=== PATIENT | female | born 1990 | race Caucasian/White ===

== ENCOUNTER 2017-04-17 16:02 | Emergency (ER) | payer OTHER ==
[~2017-04-17] VITALS: Ht 142.2 cm; Wt 95.5 kg
[2017-04-17 16:03] VITALS: BP 132/75; PULSE 73; RESP 16; TEMP 98.5; O2SAT 99
[2017-04-17 17:10] LABS: AUTOMATED NEUTROPHIL # 9.2 TH/MM3 (1.8-7.7); BASOPHIL % 0.1 % (0.0-2.0); BILIRUBIN, URINE NEG (NEG); BLOOD, URINE MOD (NEG); EOSINOPHIL % 0.3 % (0.0-4.0); GLUCOSE,URINE NEG (NEG); HEMATOCRIT 38.6 % (35.0-46.0); HEMOGLOBIN 13.7 GM/DL (11.6-15.3); KETONE, URINE 150 mg/dL (NEG); LYMPH % 12.3 % (9.0-44.0); LYMPHOCYTE # 1.4 TH/MM3 (1.0-4.8); MEAN CELL VOLUME 94.8 FL (80.0-100.0); MEAN CORPUSCULAR HEMOGLOBIN 33.7 PG (27.0-34.0); MEAN CORPUSCULAR HGB CONC 35.5 % (32.0-36.0); MEAN PLATELET VOLUME 7.1 FL (7.0-11.0); MONO % 3.6 % (0.0-8.0); MONOCYTE # 0.4 TH/MM3 (0-0.9); MUCUS URINE FEW /lpf (OCC); NEUT % 83.7 % (16.0-70.0); NITRITE,URINE NEG (NEG); PLATELET COUNT 317 TH/MM3 (150-450); RED BLOOD COUNT 4.07 MIL/MM3 (4.00-5.30); RED CELL DISTRIBUTION WIDTH 12.7 % (11.6-17.2); SQUAMOUS EPITHELIAL CELL URINE 19 /hpf (0-5); URINE COLOR YELLOW (YELLW/STRAW); URINE LEUKOCYTE ESTERASE MOD (NEG)
[2017-04-17 17:23] LABS: ALBUMIN 3.6 GM/DL (3.4-5.0); AST (GOT) 6 U/L (15-37); BICARBONATE 24.1 MEQ/L (21.0-32.0); BLOOD UREA NITROGEN 9 MG/DL (7-18); CALCIUM 8.7 MG/DL (8.5-10.1); CHLORIDE 102 MEQ/L (98-107); CREATININE 0.61 MG/DL (0.50-1.00); GLOMERULAR FILTRATION RATE 120 ML/MIN (>89); GLUCOSE,RANDOM 107 MG/DL (74-106); SODIUM (NA) 136 MEQ/L (136-145)
[2017-04-17 17:26] LABS: ALKALINE PHOSPHATASE 95 U/L (45-117); ALT (GPT) 14 U/L (10-53); TOTAL BILIRUBIN ADULT 1.1 MG/DL (0.2-1.0); TOTAL PROTEIN 7.9 GM/DL (6.4-8.2)
[2017-04-17] MEDS ORDERED: ACETAMINOPHEN 325 MG TAB PO ONE (17:30)
[2017-04-17] MEDS ORDERED: LIDOCAINE HCL 1% 50 ML VIAL IM ONE (18:00)
[2017-04-17] MEDS ORDERED: ONDANSETRON ODT 4 MG TAB PO ONE (18:00)
[2017-04-17] MEDS ORDERED: AZITHROMYCIN 250 MG TAB PO ONE (18:00)
[2017-04-17] MEDS ORDERED: cefTRIAXone 250 MG VIAL IM ONE (18:00)
--- NOTE | 2017-04-17 18:04 | PD ---
HPI Chief Complaint: Abdominal Pain Time Seen by Provider: 17:04 Travel History International Travel<30 days: No Contact w/Intl Traveler<30days: No Traveled to known affect area: No History of Present Illness HPI 26-year-old female presents to the emergency department with complaint of pelvic pain, back pain, vomiting, sore throat 3 days. Thinks she may be . Her last menstrual period was in January. Reports subjective fevers. Reports diarrhea today. Reports bilateral ear pain more on the right than left. Reports cough. Denies dysuria. Denies vaginal bleeding, leaking, abnormal discharge. Has tried TheraFlu and Tylenol for symptom management. Rates sore throat 10/10. Describes as burning. Aggravated with swallowing. No known relieving factors. Significant other had sore throat and similar symptoms recently. No primary care provider. No known allergies. Denies significant past medical history. History of cholecystectomy. Has no other medical complaints. No other modifying factors or associated signs and symptoms. PFSH Past Medical History Medical other: Yes (lemier syndrom ) ?: Unknown LMP: end of december 2016 : 2 Para: 1 Social History Alcohol Use: No Tobacco Use: Yes (1/2 pack a day ) Substance Use: Yes (marajuana ) Allergies-Medications (Allergen,Severity, Reaction): Coded Allergies: No Known Allergies (Unverified , 04/17/17) Reported Meds & Prescriptions Reported Meds & Active Scripts Active Amoxicillin 500 Mg Cap 500 Mg PO BID 10 Days Review of Systems Except as stated in HPI: all other systems reviewed are Neg Physical Exam Narrative GENERAL: Well-nourished, well-developed female patient, in no acute distress; afebrile, nontoxic-appearing SKIN: Warm and dry. No rash. HEAD: Atraumatic. Normocephalic. EYES: Pupils equal and round. No scleral icterus. No injection or drainage. ENT: Mucosa pink and moist. No erythema or exudates. No uvular edema. No uvular , palatal, or tonsillar deviation. Airway patent. EARS: Bilateral pinnae and external canals appear within normal limits. Bilateral tympanic membranes without erythema, dullness or perforation. NECK: Trachea midline. No lymphadenopathy. CARDIOVASCULAR: Regular rate and rhythm. No murmur appreciated. RESPIRATORY: No accessory muscle use. Clear to auscultation. Breath sounds equal bilaterally. No retractions or tachypnea. GASTROINTESTINAL: Abdomen soft, non-tender, nondistended. Mid pelvic region tender to palpation. Hepatic and splenic margins not palpable. No guarding, rigidity, rebound tenderness. Bladder nontender and nondistended. PELVIC: Exam done in the presence of a nurse. Speculum exam reveals edematous and erythematous cervix with thick, yellowish, mucopurulent, foul-smelling discharge. Bimanual exam reveals no palpable masses or adnexa tenderness, no uterine tenderness. No cervical motion tenderness. BACK: No CVA tenderness. MUSCULOSKELETAL: No obvious deformities. No clubbing. No cyanosis. No edema. NEUROLOGICAL: Awake and alert. Oriented 3. No obvious cranial nerve deficits. Motor grossly within normal limits. Normal speech. Moves all extremities. 5/5 strength to all extremities. PSYCHIATRIC: Appropriate mood and affect; insight and judgment normal. Data Data Last Documented VS Vital Signs Date Time Temp Pulse Resp B/P (MAP) Pulse Ox O2 Delivery O2 Flow Rate FiO2 04/17/17 19:44 98.1 116/69 (85) 100 04/17/17 19:00 18 04/17/17 16:03 73 Room Air Orders Orders Complete Blood Count With Diff (04/17/17 16:06) Comprehensive Metabolic Panel (04/17/17 16:06) Urinalysis - C+S If Indicated (04/17/17 16:06) Ed Urine Pregnancytest Poc (04/17/17 16:06) Beta Hcg (Quant/Titer) (04/17/17 16:07) Gc And Chlamydia Pcr (04/17/17 17:23) Wet Prep Profile (04/17/17 17:23) Group A Rapid Strep Screen (04/17/17 17:23) Influenzae A/B Antigen (04/17/17 17:23) Acetaminophen (Tylenol) (04/17/17 17:30) Ceftriaxone Inj (Rocephin Inj) (04/17/17 18:00) Azithromycin (Zithromax) (04/17/17 18:00) Ondansetron Odt (Zofran Odt) (04/17/17 18:00) Lidocaine 1% Inj (Xylocaine 1% Inj) (04/17/17 18:30) Us Pelvis (Ques Pr/Ect)W Trans (04/17/17 ) Ed Discharge Order (04/17/17 19:50) Labs Laboratory Tests Test 04/17/17 16:37 04/17/17 18:00 White Blood Count 11.0 TH/MM3 Red Blood Count 4.07 MIL/MM3 Hemoglobin 13.7 GM/DL Hematocrit 38.6 % Mean Corpuscular Volume 94.8 FL Mean Corpuscular Hemoglobin 33.7 PG Mean Corpuscular Hemoglobin Concent 35.5 % Red Cell Distribution Width 12.7 % Platelet Count 317 TH/MM3 Mean Platelet Volume 7.1 FL Neutrophils (%) (Auto) 83.7 % Lymphocytes (%) (Auto) 12.3 % Monocytes (%) (Auto) 3.6 % Eosinophils (%) (Auto) 0.3 % Basophils (%) (Auto) 0.1 % Neutrophils # (Auto) 9.2 TH/MM3 Lymphocytes # (Auto) 1.4 TH/MM3 Monocytes # (Auto) 0.4 TH/MM3 Eosinophils # (Auto) 0.0 TH/MM3 Basophils # (Auto) 0.0 TH/MM3 CBC Comment DIFF FINAL Differential Comment Urine Color YELLOW Urine Turbidity HAZY Urine pH 6.0 Urine Specific [place] 1.029 Urine Protein 30 mg/dL Urine Glucose (UA) NEG mg/dL Urine Ketones 150 mg/dL Urine Occult Blood MOD Urine Nitrite NEG Urine Bilirubin NEG Urine Urobilinogen 2.0 MG/DL Urine Leukocyte Esterase MOD Urine RBC 1 /hpf Urine WBC 6 /hpf Urine Squamous Epithelial Cells 19 /hpf Urine Mucus FEW /lpf Microscopic Urinalysis Comment CULT NOT INDICATED Blood Urea Nitrogen 9 MG/DL Creatinine 0.61 MG/DL Random Glucose 107 MG/DL Total Protein 7.9 GM/DL Albumin 3.6 GM/DL Calcium Level 8.7 MG/DL Alkaline Phosphatase 95 U/L Aspartate Amino Transf (AST/SGOT) 6 U/L Alanine Aminotransferase (ALT/SGPT) 14 U/L Total Bilirubin 1.1 MG/DL Sodium Level 136 MEQ/L Potassium Level 3.6 MEQ/L Chloride Level 102 MEQ/L Carbon Dioxide Level 24.1 MEQ/L Anion Gap 10 MEQ/L Estimat Glomerular Filtration Rate 120 ML/MIN Human Chorionic Gonadotropin, Quant 09822 MIU/ML Clue Cells (Wet Prep) NS Vaginal Trichomonas (Wet Prep) NS Vaginal Yeast (Wet Prep) NS Chlamydia trachomatis DNA (PCR) NOT DETECTED Neisseria gonorrhoeae DNA (PCR) NOT DETECTED MDM Medical Decision Making Medical Screen Exam Complete: Yes Emergency Medical Condition: Yes Medical Record Reviewed: Yes Differential Diagnosis , cervicitis, UTI, viral illness, influenza, strep pharyngitis Narrative Course 26-year-old female with positive test with cold/flu symptoms, sore throat, and pelvic pain. Influenza, rapid strep, wet prep, chlamydia, gonorrhea , CBC, CMP, urinalysis, pelvic ultrasound ordered. 1803: CBC, CMP unremarkable. Beta hCG 24737. Urinalysis without signs of infection. Influenza negative. Rapid strep positive. Amoxicillin will be prescribed for home. 1800: Pelvic exam with cervicitis. Patient will be treated empirically with azithromycin and Rocephin in the ER. Chlamydia and gonorrhea pending. Instructed patient to follow-up with outdoor emergency care technician. Amoxicillin prescribed for home. 1900: Report given to Eddie ozuna PA-C at change of shift. Pelvic ultrasound pending. See his note for final patient disposition. Diagnosis Primary Impression: Qualified Codes: Z34.90 - Encounter for supervision of normal , unspecified, unspecified trimester Additional Impressions: Cervicitis Strep throat Referrals: [facility] Band Instrument Repairer Patient Instructions: Cervicitis (ED), First Trimester (ED), General Instructions, Strep Throat (ED) Med/Other Pt SpecificInfo: Prescription(s) given Scripts Amoxicillin (Amoxicillin) 500 Mg Cap 500 MG PO BID for Infection for 10 Days, #20 CAP 0 Refills Prov: Nohemy Malik 04/17/17 Disposition: DISCHARGE HOME Condition: Stable Nohemy Malik Apr 17, 2017 18:04
[2017-04-17] MEDS ORDERED: AMOX500C PO (18:11)
[2017-04-17] MEDS ORDERED: LIDOCAINE HCL 1% 20 ML VIAL OTHER ONE (18:30)
[2017-04-17 19:00] VITALS: RESP 18
[2017-04-17 19:44] VITALS: BP 116/69; TEMP 98.1
--- NOTE | 2017-04-17 19:45 | RADRPT ---
EXAM DATE/TIME: 04/17/2017 18:23 [facility] COMPARISON: No previous studies available for comparison. INDICATIONS : Pelvic pain. LAB(S): Beta-hC,482. MEDICAL HISTORY : . Substance use. Lemier syndrome. SURGICAL HISTORY : section. ENCOUNTER: Initial ACUITY: 1 day PAIN SCORE: 3/10 LOCATION: Bilateral pelvis MEASUREMENTS: UTERUS: 9.2 x 6.6 x 4.8 cm ENDOMETRIAL STRIPE: 10 mm RIGHT OVARY: 2.6 x 1.9 x 1.6 cm cm LEFT OVARY: Not visualized. CROWN RUMP LENGTH: 1.1 cm = 7 WKS 1 DAYS FHR: 136 BPM FINDINGS: UTERUS: There is an intrauterine gestational sac corresponding to 7 weeks 2 days. A pole is present cor responding to 7 weeks one day. cardiac activity is noted at 136 bpm. RIGHT OVARY: Ovary contains no mass or significant cystic lesion. LEFT OVARY: Not visualized on transvaginal exam. Unremarkable transabdominal appearance. MISCELLANEOUS: No free fluid. CONCLUSION: 1. Single intrauterine gestation corresponding to 7 weeks 1 day. heart rate of 136 bpm. 2. Limited visualization of the left ovary. Tate Bear MD on April 17, 2017 at 19:41 Board Certified Radiologist. This report was verified electronically.
== END 2017-04-17 19:52 | disposition home or self-care (01) ==
LOC: NEPD 16:02
DX: O23.519 Infections of cervix in pregnancy, unspecified trimester (principal); O26.899 Other specified pregnancy related conditions, unspecified trimester; J02.0 Streptococcal pharyngitis; Z3A.00 Weeks of gestation of pregnancy not specified; O99.330 Smoking (tobacco) complicating pregnancy, unspecified trimester; F17.210 Nicotine dependence, cigarettes, uncomplicated
CPT/HCPCS: 76700; 76817; 80053; 81001; 84702; 84703; 85025; 87210; 87491; 87591; 87804; 87880; 96372; 99284; J0696

== ENCOUNTER 2017-05-26 04:04 | Observation (INO) | payer OTHER ==
[~2017-05-26] VITALS: Ht 144.8 cm; Wt 100.0 kg
[2017-05-26] VITALS (7 sets, daily range): BP systolic 106–131; BP diastolic 53–76; PULSE 66–94; RESP 16–18; TEMP 97.9–98.6; O2SAT 98–100
[~2017-05-26 04:04] MED LIST: AMOX500C PO
[2017-05-26] MEDS ORDERED: SODIUM CHLORIDE 0.9% FLUSH 10 ML FLUSH IV FLUSH PRN ×2 (04:30→09:30)
--- NOTE | 2017-05-26 04:54 | PD ---
HPI Chief Complaint: Abdominal Pain Time Seen by Provider: 04:28 Travel History International Travel<30 days: No Contact w/Intl Traveler<30days: No Traveled to known affect area: No History of Present Illness HPI 26-year-old female complains of abdominal pain. Patient states that the pain started last night. Patient states that the pain is sharp pain burning pain started at the left upper quadrant and epigastric area with radiation to left flank area. Patient denies any fever chills. Patient denies any nausea vomiting. Patient states that she has intermittent diarrhea since last night. Patient is 13 week . Patient states that she had small amount of vaginal spotting yesterday. Patient states that she is not sure the blood come from the vaginal on the bladder. Patient has dysuria frequency for the past 2 days. Patient has not seen the OB physician for this . Patient was seen in emergency room April 17, 2017. GC and Chlamydia PCR negative. PFSH Past Medical History Cardiovascular Problems: Yes (CARDIAC ARREST AT 16YR) Tetanus Vaccination: Unknown Influenza Vaccination: No ?: : 2 Para: 1 Past Surgical History Section: Yes Cholecystectomy: Yes Social History Alcohol Use: No Tobacco Use: Yes (1/2 pack a day ) Substance Use: Yes ([facility] ) Allergies-Medications (Allergen,Severity, Reaction): Coded Allergies: No Known Allergies (Unverified , 04/17/17) Reported Meds & Prescriptions Reported Meds & Active Scripts Active No Active Prescriptions or Reported Medications Review of Systems General / Constitutional: No: Fever Eyes: No: Visual changes HENT: No: Headaches Cardiovascular: No: Chest Pain or Discomfort Respiratory: No: Shortness of Breath Gastrointestinal: Positive: Diarrhea, Abdominal Pain Genitourinary: No: Dysuria Musculoskeletal: No: Pain Skin: No Rash Neurologic: No: Weakness Psychiatric: No: Depression Endocrine: No: Polydipsia Hematologic/Lymphatic: No: Easy Bruising Physical Exam Narrative GENERAL: Well-nourished, well-developed patient. SKIN: Focused skin assessment warm/dry. HEAD: Normocephalic. EYES: No scleral icterus. No injection or drainage. NECK: Supple, trachea midline. No JVD or lymphadenopathy. CARDIOVASCULAR: Regular rate and rhythm without murmurs, gallops, or rubs. RESPIRATORY: Breath sounds equal bilaterally. No accessory muscle use. GASTROINTESTINAL: Abdomen soft, nondistended. Patient has moderate tenderness on palpation epigastric and left upper quadrant of the abdomen. No rebound tenderness. No mass. MUSCULOSKELETAL: No cyanosis, or edema. BACK: Nontender without obvious deformity. Positive left CVA tenderness. MUSIC ENGRAVER exam: No blood in the vaginal vault. The cervix long thick and closed. Data Data Last Documented VS Vital Signs Date Time Temp Pulse Resp B/P (MAP) Pulse Ox O2 Delivery O2 Flow Rate FiO2 05/26/17 04:10 97.9 94 18 131/68 (89) 99 Orders Orders Complete Blood Count With Diff (05/26/17 04:28) Comprehensive Metabolic Panel (05/26/17 04:28) Lipase (05/26/17 04:28) Urinalysis - C+S If Indicated (05/26/17 04:28) Iv Access Insert/Monitor (05/26/17 04:28) Ecg Monitoring (05/26/17 04:28) Oximetry (05/26/17 04:28) Sodium Chloride 0.9% Flush (Ns Flush) (05/26/17 04:30) Urine Culture (05/26/17 04:36) Us Kidney/Renal/Bladder (05/26/17 05:07) Ceftriaxone Inj (Rocephin Inj) (05/26/17 05:45) Sodium Chlor 0.9% 1000 Ml Inj (Ns 1000 M (05/26/17 05:45) Labs Laboratory Tests Test 05/26/17 04:28 05/26/17 04:36 05/26/17 05:24 Blood Urea Nitrogen 2 MG/DL Creatinine 0.54 MG/DL Random Glucose 90 MG/DL Total Protein 7.1 GM/DL Albumin 2.9 GM/DL Calcium Level 8.3 MG/DL Alkaline Phosphatase 50 U/L Aspartate Amino Transf (AST/SGOT) 38 U/L Alanine Aminotransferase (ALT/SGPT) 14 U/L Total Bilirubin 0.5 MG/DL Sodium Level 138 MEQ/L Potassium Level 4.3 MEQ/L Chloride Level 111 MEQ/L Carbon Dioxide Level 16.9 MEQ/L Anion Gap 10 MEQ/L Estimat Glomerular Filtration Rate 138 ML/MIN Lipase 55 U/L Urine Color YELLOW Urine Turbidity HAZY Urine pH 6.0 Urine Specific [place] 1.012 Urine Protein 30 mg/dL Urine Glucose (UA) NEG mg/dL Urine Ketones NEG mg/dL Urine Occult Blood MOD Urine Nitrite NEG Urine Bilirubin NEG Urine Urobilinogen LESS THAN 2.0 MG/DL Urine Leukocyte Esterase LARGE Urine RBC 44 /hpf Urine WBC 15 /hpf Urine Squamous Epithelial Cells 3 /hpf Urine Bacteria OCC /hpf Urine Mucus FEW /lpf Microscopic Urinalysis Comment CULTURE INDICATED White Blood Count 12.2 TH/MM3 Red Blood Count 3.72 MIL/MM3 Hemoglobin 12.3 GM/DL Hematocrit 35.4 % Mean Corpuscular Volume 95.2 FL Mean Corpuscular Hemoglobin 33.0 PG Mean Corpuscular Hemoglobin Concent 34.7 % Red Cell Distribution Width 12.6 % Platelet Count 260 TH/MM3 Mean Platelet Volume 7.2 FL Neutrophils (%) (Auto) 79.8 % Lymphocytes (%) (Auto) 14.6 % Monocytes (%) (Auto) 4.2 % Eosinophils (%) (Auto) 1.1 % Basophils (%) (Auto) 0.3 % Neutrophils # (Auto) 9.7 TH/MM3 Lymphocytes # (Auto) 1.8 TH/MM3 Monocytes # (Auto) 0.5 TH/MM3 Eosinophils # (Auto) 0.1 TH/MM3 Basophils # (Auto) 0.0 TH/MM3 CBC Comment DIFF FINAL Differential Comment MDM Medical Decision Making Medical Screen Exam Complete: Yes Emergency Medical Condition: Yes Interpretation(s) 6:45 AM. CBC WBC 12.2. 79 neutrophil. Bicarb 16.9. UA positive for WBC RBC and bacteria. Differential Diagnosis Differential diagnoses including gastritis, PUD, pancreatitis, colitis, UTI, pyelonephritis, nephrolithiasis, threatened AB. Narrative Course 26-year-old female, 13 weeks , with left flank pain and left upper quadrant abdominal pain. Rocephin 1 g IV given. Normal saline solution 1 25 cc an hour. Diagnosis Primary Impression: Pyelonephritis Scripts No Active Prescriptions or Reported Meds Brannon Andrew MD May 26, 2017 04:54
[2017-05-26 04:56] LABS: BACTERIA, URINE OCC /hpf; BILIRUBIN, URINE NEG (NEG); BLOOD, URINE MOD (NEG); GLUCOSE,URINE NEG (NEG); KETONE, URINE NEG (NEG); MUCUS URINE FEW /lpf (OCC); NITRITE,URINE NEG (NEG); SQUAMOUS EPITHELIAL CELL URINE 3 /hpf (0-5); URINE COLOR YELLOW (YELLW/STRAW); URINE LEUKOCYTE ESTERASE LARGE (NEG)
[2017-05-26 05:05] LABS: ALBUMIN 2.9 GM/DL (3.4-5.0); ALT (GPT) 14 U/L (10-53); AST (GOT) 38 U/L (15-37); BICARBONATE 16.9 MEQ/L (21.0-32.0); BLOOD UREA NITROGEN 2 MG/DL (7-18); CALCIUM 8.3 MG/DL (8.5-10.1); CHLORIDE 111 MEQ/L (98-107); CREATININE 0.54 MG/DL (0.50-1.00); GLOMERULAR FILTRATION RATE 138 ML/MIN (>89); GLUCOSE,RANDOM 90 MG/DL (74-106); SODIUM (NA) 138 MEQ/L (136-145)
[2017-05-26 05:07] LABS: ALKALINE PHOSPHATASE 50 U/L (45-117); TOTAL BILIRUBIN ADULT 0.5 MG/DL (0.2-1.0); TOTAL PROTEIN 7.1 GM/DL (6.4-8.2)
[2017-05-26 05:38] LABS: AUTOMATED NEUTROPHIL # 9.7 TH/MM3 (1.8-7.7); BASOPHIL % 0.3 % (0.0-2.0); EOSINOPHIL # 0.1 TH/MM3 (0-0.4); EOSINOPHIL % 1.1 % (0.0-4.0); HEMATOCRIT 35.4 % (35.0-46.0); HEMOGLOBIN 12.3 GM/DL (11.6-15.3); LYMPH % 14.6 % (9.0-44.0); LYMPHOCYTE # 1.8 TH/MM3 (1.0-4.8); MEAN CELL VOLUME 95.2 FL (80.0-100.0); MEAN CORPUSCULAR HGB CONC 34.7 % (32.0-36.0); MEAN PLATELET VOLUME 7.2 FL (7.0-11.0); MONO % 4.2 % (0.0-8.0); MONOCYTE # 0.5 TH/MM3 (0-0.9); NEUT % 79.8 % (16.0-70.0); PLATELET COUNT 260 TH/MM3 (150-450); RED BLOOD COUNT 3.72 MIL/MM3 (4.00-5.30); RED CELL DISTRIBUTION WIDTH 12.6 % (11.6-17.2); WHITE BLOOD COUNT 12.2 TH/MM3 (4.0-11.0)
[2017-05-26] MEDS ORDERED: cefTRIAXone INJ 1,000 MG in SODIUM CHLORIDE 0.9% INJ 100 ML IV ONE (05:45)
[2017-05-26] MEDS: SODIUM CHLOR 0.9% 1000 ML INJ 1,000 ML IV SCH ×5 (06:30→21:04)
--- NOTE | 2017-05-26 09:05 | RADRPT ---
EXAM DATE/TIME: 05/26/2017 07:39 [facility] COMPARISON: No previous studies available for comparison. INDICATIONS : Left flank pain. MEDICAL HISTORY : 13 weeks . Cardiac arrest. SURGICAL HISTORY : Cholecystectomy. section. ENCOUNTER: Initial ACUITY: 2 days PAIN SCORE: 4/10 LOCATION: Bilateral flank MEASUREMENTS: RIGHT KIDNEY: 9.9 x 4.5 x 4.7 cm LEFT KIDNEY: 11.8 x 5.6 x 5.2 cm FINDINGS: RIGHT KIDNEY: Renal cortex is normal in thickness and echotexture. No hydronephrosis, stone, or mass. LEFT KIDNEY: Renal cortex is normal in thickness and echotexture. No hydronephrosis, stone, or mass. BLADDER: Within normal limits given the degree of distension. CONCLUSION: Unremarkable exam with no renal calculi or obstruction. Juve Ward MD on May 26, 2017 at 9:03 Board Certified Radiologist. This report was verified electronically.
[2017-05-26] MEDS ORDERED: LACTULOSE SYRUP 20 GM/30 ML CUP PO PRN (09:30)
[2017-05-26] MEDS ORDERED: SENNOSIDES 8.6 MG TAB PO PRN (09:30)
[2017-05-26] MEDS ORDERED: NALOXONE HCL 0.4 MG/ML AMP IV PUSH PRN (09:30)
[2017-05-26] MEDS ORDERED: BISACODYL 10 MG SUPP RECTAL PRN (09:30)
[2017-05-26] MEDS ORDERED: MAGNESIUM HYDROXIDE SUSP 30 ML CUP PO PRN (09:30)
--- NOTE | 2017-05-26 09:33 | PD ---
Physical Exam Date Seen by Provider: May 26, 2017 Narrative This patient was signed out to me at 7 AM pending ultrasound to rule out hydronephrosis. The patient is 13 weeks . She has pyelonephritis based upon examination and urinalysis. Ultrasound was ordered to look for kidney stone/hydronephrosis. She had been treated with Rocephin. Data Data Last Documented VS Vital Signs Date Time Temp Pulse Resp B/P (MAP) Pulse Ox O2 Delivery O2 Flow Rate FiO2 05/26/17 07:21 72 18 100 Room Air 05/26/17 04:10 97.9 131/68 (89) Orders Orders Complete Blood Count With Diff (05/26/17 04:28) Comprehensive Metabolic Panel (05/26/17 04:28) Lipase (05/26/17 04:28) Urinalysis - C+S If Indicated (05/26/17 04:28) Iv Access Insert/Monitor (05/26/17 04:28) Ecg Monitoring (05/26/17 04:28) Oximetry (05/26/17 04:28) Sodium Chloride 0.9% Flush (Ns Flush) (05/26/17 04:30) Urine Culture (05/26/17 04:36) Us Kidney/Renal/Bladder (05/26/17 05:07) Ceftriaxone Inj (Rocephin Inj) (05/26/17 05:45) Sodium Chlor 0.9% 1000 Ml Inj (Ns 1000 M (05/26/17 05:45) Place In Observation (05/26/17 ) Vital Signs (Adult) Q4H (05/26/17 09:25) Activity Oob With Assistance (05/26/17 09:25) Bedside Glucose MARIO.CSUGAR (05/26/17 09:25) Diet Regular Basic (05/26/17 Breakfast) Sodium Chlor 0.9% 1000 Ml Inj (Ns 1000 M (05/26/17 09:25) Sodium Chloride 0.9% Flush (Ns Flush) (05/26/17 09:30) Sodium Chloride 0.9% Flush (Ns Flush) (05/26/17 21:00) Acetaminophen (Tylenol) (05/26/17 09:30) Basic Metabolic Panel (Bmp) (05/27/17 06:00) Complete Blood Count With Diff (05/27/17 06:00) Case Management Consult (05/26/17 09:25) Scd Bilateral/Knee High MARIO.BID (05/26/17 09:25) Abe Bilateral/Knee High MARIO.QSHIFT (05/26/17 09:25) Naloxone Inj (Narcan Inj) (05/26/17 09:30) Docusate Sodium-Senna (Josi-Colace) (05/26/17 21:00) Magnesium Hydroxide Liq (Milk Of Magnesi (05/26/17 09:30) Sennosides (Senokot) (05/26/17 09:30) Bisacodyl Supp (Dulcolax Supp) (05/26/17 09:30) Lactulose Liq (Lactulose Liq) (05/26/17 09:30) Ceftriaxone Inj (Rocephin Inj) (05/26/17 09:30) Admit Order (Ed Use Only) (05/26/17 09:30) Labs Laboratory Tests Test 05/26/17 04:28 05/26/17 04:36 05/26/17 05:24 Blood Urea Nitrogen 2 MG/DL Creatinine 0.54 MG/DL Random Glucose 90 MG/DL Total Protein 7.1 GM/DL Albumin 2.9 GM/DL Calcium Level 8.3 MG/DL Alkaline Phosphatase 50 U/L Aspartate Amino Transf (AST/SGOT) 38 U/L Alanine Aminotransferase (ALT/SGPT) 14 U/L Total Bilirubin 0.5 MG/DL Sodium Level 138 MEQ/L Potassium Level 4.3 MEQ/L Chloride Level 111 MEQ/L Carbon Dioxide Level 16.9 MEQ/L Anion Gap 10 MEQ/L Estimat Glomerular Filtration Rate 138 ML/MIN Lipase 55 U/L Urine Color YELLOW Urine Turbidity HAZY Urine pH 6.0 Urine Specific [place] 1.012 Urine Protein 30 mg/dL Urine Glucose (UA) NEG mg/dL Urine Ketones NEG mg/dL Urine Occult Blood MOD Urine Nitrite NEG Urine Bilirubin NEG Urine Urobilinogen LESS THAN 2.0 MG/DL Urine Leukocyte Esterase LARGE Urine RBC 44 /hpf Urine WBC 15 /hpf Urine Squamous Epithelial Cells 3 /hpf Urine Bacteria OCC /hpf Urine Mucus FEW /lpf Microscopic Urinalysis Comment CULTURE INDICATED White Blood Count 12.2 TH/MM3 Red Blood Count 3.72 MIL/MM3 Hemoglobin 12.3 GM/DL Hematocrit 35.4 % Mean Corpuscular Volume 95.2 FL Mean Corpuscular Hemoglobin 33.0 PG Mean Corpuscular Hemoglobin Concent 34.7 % Red Cell Distribution Width 12.6 % Platelet Count 260 TH/MM3 Mean Platelet Volume 7.2 FL Neutrophils (%) (Auto) 79.8 % Lymphocytes (%) (Auto) 14.6 % Monocytes (%) (Auto) 4.2 % Eosinophils (%) (Auto) 1.1 % Basophils (%) (Auto) 0.3 % Neutrophils # (Auto) 9.7 TH/MM3 Lymphocytes # (Auto) 1.8 TH/MM3 Monocytes # (Auto) 0.5 TH/MM3 Eosinophils # (Auto) 0.1 TH/MM3 Basophils # (Auto) 0.0 TH/MM3 CBC Comment DIFF FINAL Differential Comment MDM Supervised Visit with NI: No Narrative Course CBC Diagram 05/26/17 05:24 BMP Diagram 05/26/17 04:28 Total Protein 7.1, Albumin 2.9 L, Calcium Level 8.3 L, Alkaline Phosphatase 50, Aspartate Amino Transf (AST/SGOT) 38 H, Alanine Aminotransferase (ALT/SGPT) 14, Total Bilirubin 0.5 UA shows large leukocyte esterase, 44 red blood cells, 15 white blood cells, occasional bacteria The patient is being admitted to observation per the hospitalist service. Diagnosis Primary Impression: Pyelonephritis Admitting Information Admitting Physician Requests: Observation Scripts No Active Prescriptions or Reported Meds Condition: Stable Ethel Chowdhury MD May 26, 2017 09:33
[2017-05-26] MEDS: ACETAMINOPHEN 325 MG TAB PO PRN ×2 (12:10→21:04)
--- NOTE | 2017-05-26 13:55 | HHI.HP ---
[facility] No Primary Care Physician Admission Diagnosis left pyelonephritis, Diagnoses: (1) UTI (urinary tract infection) Chief Complaint: abdominal pain Travel History International Travel<30 Days: No Contact w/Intl Traveler <30 Da: No Traveled to Known Affected Are: No History of Present Illness 26-year-old female at 13 weeks GA came to ED with complains of abdominal pain. Patient states that the pain started last night. Patient states that the pain is sharp pain burning pain started at the left upper quadrant and epigastric area with radiation to left flank area. Patient denies any fever chills. Patient denies any nausea vomiting. Patient states that she has intermittent diarrhea since last night. Patient is 13 week . Patient states that she had small amount of vaginal spotting yesterday. Patient states that she is not sure the blood come from the vaginal on the bladder. Patient has dysuria frequency for the past 2 days. Patient has not seen the OB physician for this . Patient was seen in emergency room April 17, 2017. GC and Chlamydia PCR negative. Review of Systems Except as stated in HPI: all other systems reviewed are Neg Past Family Social History Past Medical History Cardiac arrest at 16 ya Past Surgical History CS Reported Medications Reported Meds & Active Scripts Active No Active Prescriptions or Reported Medications Allergies: Coded Allergies: No Known Allergies (Unverified , 04/17/17) Family History Parents are healthy Social History Illicit drug use: marijuana 3x a week Tobacco use: 1/2 pack a day Denies EtOH use Physical Exam Vital Signs Vital Signs Date Time Temp Pulse Resp B/P (MAP) Pulse Ox O2 Delivery O2 Flow Rate FiO2 05/26/17 10:49 98.0 84 16 106/70 (82) 99 05/26/17 10:39 05/26/17 10:16 75 18 124/76 (92) 98 Room Air 05/26/17 07:21 72 18 100 Room Air 05/26/17 04:10 97.9 94 18 131/68 (89) 99 Physical Exam GENERAL: This is a well-nourished, well-developed patient, in no apparent distress. SKIN: No rashes, ecchymoses or lesions. Cool and dry. HEAD: Atraumatic. Normocephalic. No temporal or scalp tenderness. EYES: Pupils equal round and reactive. Extraocular motions intact. No scleral icterus. No injection or drainage. ENT: Nose without bleeding, purulent drainage or septal hematoma. Throat without erythema, tonsillar hypertrophy or exudate. Uvula midline. Airway patent. NECK: Trachea midline. No JVD or lymphadenopathy. Supple, nontender, no meningeal signs. CARDIOVASCULAR: Regular rate and rhythm without murmurs, gallops, or rubs. RESPIRATORY: Clear to auscultation. Breath sounds equal bilaterally. No wheezes , rales, or rhonchi. GASTROINTESTINAL: Abdomen soft, non-tender, nondistended. No hepato-splenomegaly , or palpable masses. No guarding. MUSCULOSKELETAL: Extremities without clubbing, cyanosis, or edema. No joint tenderness, effusion, or edema noted. No calf tenderness. Negative Homans sign bilaterally. NEUROLOGICAL: Awake and alert. Cranial nerves II through XII intact. Motor and sensory grossly within normal limits. Five out of 5 muscle strength in all muscle groups. Normal speech. Laboratory Laboratory Tests Test 05/26/17 04:28 05/26/17 04:36 05/26/17 05:24 Blood Urea Nitrogen 2 Creatinine 0.54 Random Glucose 90 Total Protein 7.1 Albumin 2.9 Calcium Level 8.3 Alkaline Phosphatase 50 Aspartate Amino Transf (AST/SGOT) 38 Alanine Aminotransferase (ALT/SGPT) 14 Total Bilirubin 0.5 Sodium Level 138 Potassium Level 4.3 Chloride Level 111 Carbon Dioxide Level 16.9 Anion Gap 10 Estimat Glomerular Filtration Rate 138 Lipase 55 Urine Color YELLOW Urine Turbidity HAZY Urine pH 6.0 Urine Specific [place] 1.012 Urine Protein 30 Urine Glucose (UA) NEG Urine Ketones NEG Urine Occult Blood MOD Urine Nitrite NEG Urine Bilirubin NEG Urine Urobilinogen LESS THAN 2.0 Urine Leukocyte Esterase LARGE Urine RBC 44 Urine WBC 15 Urine Squamous Epithelial Cells 3 Urine Bacteria OCC Urine Mucus FEW Microscopic Urinalysis Comment CULTURE INDICATED White Blood Count 12.2 Red Blood Count 3.72 Hemoglobin 12.3 Hematocrit 35.4 Mean Corpuscular Volume 95.2 Mean Corpuscular Hemoglobin 33.0 Mean Corpuscular Hemoglobin Concent 34.7 Red Cell Distribution Width 12.6 Platelet Count 260 Mean Platelet Volume 7.2 Neutrophils (%) (Auto) 79.8 Lymphocytes (%) (Auto) 14.6 Monocytes (%) (Auto) 4.2 Eosinophils (%) (Auto) 1.1 Basophils (%) (Auto) 0.3 Neutrophils # (Auto) 9.7 Lymphocytes # (Auto) 1.8 Monocytes # (Auto) 0.5 Eosinophils # (Auto) 0.1 Basophils # (Auto) 0.0 CBC Comment DIFF FINAL Differential Comment Date/Time Source Procedure Growth Status 05/26/17 04:36 Urine Random Urine Urine Culture Pending Worksheet Result Diagram: 05/26/17 0524 05/26/17 0428 Imaging Last Impressions Renal Ultrasound 05/26/17 0507 Signed Impressions: Service Date/Time: Friday, May 26, 2017 07:39 - CONCLUSION: Unremarkable exam with no renal calculi or obstruction. MD Radha Nicolas VTE Risk Assessment Caprinwilfred VTE Risk Assessment: Mod/High Risk (score >= 2) Caprini Risk Assessment Model Point Value = 1 Point Value = 2 Point Value = 3 Point Value = 5 Age 41-60 Minor surgery BMI > 25 kg/m2 Swollen legs Varicose veins or History of unexplained or recurrent spontaneous Oral contraceptives or hormone replacement Sepsis (< 1 month) Serious lung disease, including pneumonia (< 1 month) Abnormal pulmonary function Acute myocardial infarction Congestive heart failure (< 1 month) History of inflammatory bowel disease Medical patient at bed rest Age 61-74 Arthroscopic surgery Major open surgery (> 45 min) Laparoscopic surgery (> 45 min) Malignancy Confined to bed (> 72 hours) Immobilizing plaster cast Central venous access Age >= 75 History of VTE Family history of VTE Factor V Leiden Prothrombin [id number] Lupus anticoagulant Anticardiolipin antibodies Elevated serum homocysteine Heparin-induced thrombocytopenia Other congenital or acquired thrombophilia Stroke (< 1 month) Elective arthroplasty Hip, pelvis, or leg fracture Acute spinal cord injury (< 1 month) Prophylaxis Regimen Total Risk Factor Score Risk Level Prophylaxis Regimen 0-1 Low Early ambulation 2 Moderate Order ONE of the following: *Sequential Compression Device (SCD) *Heparin 5000 units SQ BID 3-4 Higher Order ONE of the following medications: *Heparin 5000 units SQ TID *Enoxaparin/Lovenox 40 mg SQ daily (WT < 150 kg, CrCl > 30 mL/min) *Enoxaparin/Lovenox 30 mg SQ daily (WT < 150 kg, CrCl > 10-29 mL/min) *Enoxaparin/Lovenox 30 mg SQ BID (WT < 150 kg, CrCl > 30 mL/min) AND/OR *Sequential Compression Device (SCD) 5 or more Highest Order ONE of the following medications: *Heparin 5000 units SQ TID (Preferred with Epidurals) *Enoxaparin/Lovenox 40 mg SQ daily (WT < 150 kg, CrCl > 30 mL/min) *Enoxaparin/Lovenox 30 mg SQ daily (WT < 150 kg, CrCl > 10-29 mL/min) *Enoxaparin/Lovenox 30 mg SQ BID (WT < 150 kg, CrCl > 30 mL/min) AND *Sequential Compression Device (SCD) Assessment and Plan Assessment and Plan 26-year-old female, , 13 weeks , with left flank pain and left upper quadrant abdominal pain. UTI Tobacco use, marijuana use counselled extensively UA reviewed positive for WBC, RBC and bacteria. Urine cultures pending Rocephin 1 g IV q24 hrs Start IVF Normal saline solution 100 cc an hour. Monitor vit Tylenol for pain Monitor urine cultures and DC when results back DVT ppx ambulation/SCD/TEDs Discussed Condition With pt, nurse Lulu Aguilera MD May 26, 2017 13:55
[2017-05-26] MEDS: SODIUM CHLORIDE 0.9% FLUSH 10 ML FLUSH IV FLUSH SCH (21:00)
[2017-05-26] MEDS: DOCUSATE SODIUM 50 MG/SENNA 8.6 MG TAB PO SCH (21:04)
[2017-05-27 03:20] VITALS: BP 108/68; PULSE 65; RESP 17; TEMP 98.2; O2SAT 97
[2017-05-27] MEDS ORDERED: cefTRIAXone INJ 1,000 MG in SODIUM CHLORIDE 0.9% INJ 100 ML IV SCH (06:00)
[2017-05-27] MEDS: SODIUM CHLOR 0.9% 1000 ML INJ 1,000 ML IV SCH (07:05)
[2017-05-27 08:20] VITALS: BP 105/70; PULSE 60; RESP 20; TEMP 98.5; O2SAT 100
[2017-05-27 08:30] LABS: AUTOMATED NEUTROPHIL # 6.1 TH/MM3 (1.8-7.7); BASOPHIL % 0.2 % (0.0-2.0); EOSINOPHIL # 0.2 TH/MM3 (0-0.4); EOSINOPHIL % 1.8 % (0.0-4.0); HEMATOCRIT 34.7 % (35.0-46.0); HEMOGLOBIN 11.9 GM/DL (11.6-15.3); LYMPH % 23.5 % (9.0-44.0); MEAN CELL VOLUME 95.2 FL (80.0-100.0); MEAN CORPUSCULAR HEMOGLOBIN 32.6 PG (27.0-34.0); MEAN CORPUSCULAR HGB CONC 34.2 % (32.0-36.0); MEAN PLATELET VOLUME 7.4 FL (7.0-11.0); MONO % 4.1 % (0.0-8.0); MONOCYTE # 0.4 TH/MM3 (0-0.9); NEUT % 70.4 % (16.0-70.0); PLATELET COUNT 273 TH/MM3 (150-450); RED BLOOD COUNT 3.64 MIL/MM3 (4.00-5.30); RED CELL DISTRIBUTION WIDTH 12.5 % (11.6-17.2); WHITE BLOOD COUNT 8.6 TH/MM3 (4.0-11.0)
[2017-05-27] MEDS: DOCUSATE SODIUM 50 MG/SENNA 8.6 MG TAB PO SCH (08:56)
[2017-05-27] MEDS: SODIUM CHLORIDE 0.9% FLUSH 10 ML FLUSH IV FLUSH SCH (08:57)
[2017-05-27 09:02] LABS: BICARBONATE 22.6 MEQ/L (21.0-32.0); CALCIUM 8.5 MG/DL (8.5-10.1); CREATININE 0.5 MG/DL (0.50-1.00)
[2017-05-27] MEDS ORDERED: INFLUENZA VIRUS VACCINE (QUADRIVALENT) 0.5 ML SYR IM ONE (10:00)
[2017-05-27] MEDS: ACETAMINOPHEN 325 MG TAB PO PRN (10:39)
[2017-05-27 12:45] VITALS: BP 100/53; PULSE 68; RESP 20; TEMP 98.7; O2SAT 96
[2017-05-27] MEDS ORDERED: CEFU1TAB18 PO (14:48)
--- NOTE | 2017-05-27 14:53 | HHI.PR ---
Subjective Remarks Patient says she is feeling well. Reports dysuria has resolved. Flank pain resolved as well. Feels like going home. Objective Vital Signs Date Time Temp Pulse Resp B/P (MAP) Pulse Ox O2 Delivery O2 Flow Rate FiO2 05/27/17 12:45 98.7 68 20 100/53 (69) 96 05/27/17 08:20 98.5 60 20 105/70 (82) 100 05/27/17 03:20 98.2 65 17 108/68 (81) 97 05/26/17 23:10 98.2 66 17 118/72 (87) 98 05/26/17 22:12 21 05/26/17 20:24 98.3 74 16 106/66 (79) 100 05/26/17 16:00 98.6 79 16 107/53 (71) 99 I/O 05/26/17 05/26/17 05/26/17 05/27/17 05/27/17 05/27/17 07:00 15:00 23:00 07:00 15:00 23:00 # Voids 2 Result Diagram: 05/27/1772105/27/17721 Objective Remarks GENERAL: Patient sitting up in bed crosslegged. Appears comfortable. Alert and oriented 4. SKIN: Warm and dry. HEAD: Normocephalic. EYES: No scleral icterus. No injection or drainage. NECK: Supple, trachea midline. No JVD. CARDIOVASCULAR: Regular rate and rhythm without murmurs, gallops, or rubs. RESPIRATORY: Breath sounds equal bilaterally. No accessory muscle use. GASTROINTESTINAL: Abdomen soft, non-tender, nondistended. MUSCULOSKELETAL: No cyanosis, or edema. BACK: Nontender without obvious deformity. No CVA tenderness. No flank pain. A/P Assessment and Plan 26-year-old female, , 13 weeks , with left flank pain and left upper quadrant abdominal pain. //UTI Tobacco use, marijuana use counselled extensively UA reviewed positive for WBC, RBC and bacteria. Urine cultures pending Rocephin 1 g IV q24 hrs Start IVF Normal saline solution 100 cc an hour. Monitor vit Tylenol for pain Monitor urine cultures and DC when results back -Renal ultrasound without obstruction. = Mixed ihsan on urinalysis. Symptoms have resolved. Repeat urinalysis. Patient will follow up with primary care to go over repeat urinalysis results. Discharge home on Ceftin to complete treatment course. //Hypokalemia. 3.3. Mild. Replace. DVT ppx ambulation/SCD/TEDs Bishnu Cruz MD May 27, 2017 14:53
[2017-05-27] MEDS ORDERED: POTASSIUM CHLORIDE 10 MEQ CONTROLLED RELEASE TAB PO ONE (15:00)
[2017-05-27 16:06] LABS: BACTERIA, URINE RARE /hpf; BILIRUBIN, URINE NEG (NEG); BLOOD, URINE NEG (NEG); GLUCOSE,URINE NEG (NEG); KETONE, URINE NEG (NEG); MUCUS URINE FEW /lpf (OCC); NITRITE,URINE NEG (NEG); SQUAMOUS EPITHELIAL CELL URINE 4 /hpf (0-5); URINE COLOR YELLOW (YELLW/STRAW); URINE LEUKOCYTE ESTERASE LARGE (NEG)
== END 2017-05-27 15:23 | disposition home or self-care (01) ==
LOC: NEPC 04:04 → NEDA 09:32 → NEPFCDU 10:28
PROVIDERS: ADMIT Internal Medicine; ATTEND Internal Medicine
DX: O23.01 Infections of kidney in pregnancy, first trimester (principal); O26.891 Other specified pregnancy related conditions, first trimester; Z3A.13 13 weeks gestation of pregnancy; R30.0 Dysuria; Z86.74 Personal history of sudden cardiac arrest; F17.210 Nicotine dependence, cigarettes, uncomplicated; R19.7 Diarrhea, unspecified; O99.321 Drug use complicating pregnancy, first trimester; B96.89 Other specified bacterial agents as the cause of diseases classified elsewhere; E87.6 Hypokalemia; Z23 Encounter for immunization
CPT/HCPCS: 76775; 80048; 80053; 81001; 82948; 83690; 85025; 87086; 90471; 90686; 96361; 96365; 99285; G0378; J0696; J7030; G0008; Q2038